=== PATIENT | male | born 1975 | race African-American/Black ===

== ENCOUNTER 2018-10-21 09:04 | Emergency (ER) | payer OTHER ==
[2018-10-21 09:12] VITALS: TEMP 97.6; BMI 25.4
--- NOTE | 2018-10-21 09:23 | PDOC ---
History of Present Illness - General Chief Complaint: Lightheaded Stated Complaint: LIGHTHEAD / DIABETIC Time Seen by Provider: 10/21/18 09:23 History Source: Patient Exam Limitations: No Limitations - History of Present Illness Initial Comments: 10/21/18 09:23 Mr Fregoso is a 42 yo M who presents to the ER with a complaint of headache Pt has a h/o DM for which he is supposed to be taking Levimir and Metformin He has been off his medications for the past 3 weeks because he ran out AND the moscoso of his medications increased by hundreds of dollars In light of this, he has been drinking 1 gallon of water daily Pt reports his headache is throbbing, frontal, 6/10, no radiation to the neck Headache was a gradual onset, began 4 days ago No head trauma No fevers or chills No recent travel No dizziness No nausea, vomiting, diarrhea PMH: DM PSH: denies Meds: Levemir 30 units daily, Metformin ALL: NKDA Social: denies alcohol, drug, cigarette use FH: non contributory ROS: GENERAL/CONSTITUTIONAL: No: fever, chills HEAD, EYES, EARS, NOSE AND THROAT: No: change in vision, ear pain, discharge, sore throat, throat swelling. CARDIOVASCULAR: No: chest pain, lightheadedness, palpitations, syncope RESPIRATORY: No: cough, shortness of breath, wheezing GASTROINTESTINAL: No: nausea, vomiting, diarrhea, abdominal pain GENITOURINARY: No: dysuria, hematuria MUSCULOSKELETAL: No: back pain, neck pain, SKIN: No: rash NEUROLOGIC: Yes: headache No:vertigo, paresthesias, weakness ENDOCRINE: No: unexplained weight gain or loss HEMATOLOGIC/LYMPHATIC: No: anemia, easy bleeding, swelling nodes. PE: GENERAL: The patient is in no acute distress. HEAD: Normal with no signs of trauma. EYES: PERRLA, EOMI, sclera anicteric, conjunctiva clear. ENT: Ears normal, nares patent, oropharynx clear without exudates. Moist mucous membranes. NECK: Normal range of motion, supple LUNGS: Breath sounds equal, clear to auscultation bilaterally. No wheezes, and no crackles. HEART:Regular rate and rhythm, normal S1 and S2 without murmur, rub or gallop. ABDOMEN: Soft, nontender, normoactive bowel sounds. No guarding, no rebound. EXTREMITIES: Normal range of motion NEUROLOGICAL: Cranial nerves II through XII grossly intact. Normal speech. No focal neurological deficits. MUSCULOSKELETAL: Back non-tender to palpation SKIN: Warm, Dry, normal turgor, no rashes or lesions noted. 10/21/18 10:03 10/21/18 10:03 Past History - Past Medical History Allergies/Adverse Reactions: Allergies Allergy/AdvReac Type Severity Reaction Status Date / Time No Known Allergies Allergy Verified 10/21/18 09:09 Home Medications: Ambulatory Orders Insulin Glargine,Hum.rec.anlog [Lantus Solostar PEN (NF)] 30 units SQ AM metFORMIN HCL [Metformin HCl] 500 mg PO BID 04/29/16 COPD: No Diabetes: Yes - Immunization History Immunization Up to Date: Yes - Suicide/Smoking/Psychosocial Hx Smoking History: Never smoked Hx Alcohol Use: No Drug/Substance Use Hx: No *Physical Exam - Vital Signs Last Vital Signs Temp Pulse Resp BP Pulse Ox 97.6 F 87 18 125/67 100 10/21/18 09:10 10/21/18 09:10 10/21/18 09:10 10/21/18 09:10 10/21/18 09:10 ED Treatment Course - LABORATORY CBC & Chemistry Diagram: 10/21/18 09:30 10/21/18 09:30 Medical Decision Making - Medical Decision Making 10/21/18 10:08 42 yo M presenting with a complaint of headache and medication non compliance TOMAS is not worrisome as symptoms are mild, have been present for the past 4 days , no neurologic deficits Will give Tylenol and reglan Pt blood glucose elevated >200 Pt requested we send HgA1C Will send CMP Will start IV hydration Will give Meformin Will confirm doses of medications 10/21/18 11:06 Laboratory Tests 10/21/18 10/21/18 09:30 09:30 WBC 6.4 Hgb 14.9 Hct 43.1 Plt Count 238 BUN 17 Creatinine 1.2 Random Glucose 258 H Pt demonstrates no DKA upon re assessment, TOMAS is improved When asked which pharmacy he prefers for me to send his medications, pt states he already got his medications on Friday (2 days ago) Will NOT send any additional medications Pt will be discharged to home I discussed the physical exam findings, ancillary test results and final diagnoses with the patient. I answered all of the patient's questions. The patient was satisfied with the care received and felt comfortable with the discharge plan and treatment plan. The patient will call their primary care physician within 24 hours to arrange follow-up and will return to the Emergency Department with any new, persistent or worsening symptoms. *DC/Admit/Observation/Transfer Diagnosis at time of Disposition: Poorly controlled diabetes mellitus - Discharge Dispostion Disposition: HOME Condition at time of disposition: Stable Decision to Admit order: No - Referrals - Patient Instructions Printed Discharge Instructions: DI for Diabetes Type 2, What to Eat if You Have Diabetes Additional Instructions: Mr Fregoso Thank you for coming in to the ER today Return to the emergency department immediately with ANY new, persistent or worsening symptoms. Continue any medications as previously prescribed by your physician. You should follow up with your primary doctor as soon as possible regarding today's emergency department visit. Please make sure your doctor reviews the results of your emergency evaluation. Thank you for coming to the [facility] today for your care. It was a pleasure to see you today. Please note that your evaluation is INCOMPLETE until you follow-up with your doctor. - Post Discharge Activity Forms/Work/School Notes: Back to Work
[2018-10-21] MEDS ORDERED: SODIUM CHLORIDE 1,000 ML IV STA (09:38)
[2018-10-21 09:56] LABS: BASO % 1.3 % (0-2.0); HEMATOCRIT 43.1 % (35.4-49); HEMOGLOBIN 14.9 GM/dL (11.7-16.9); LYMPH % 41.4 % (8-40); MCH 28.5 pg (25.7-33.7); MCHC 34.5 g/dl (32.0-35.9); MEAN CELL VOLUME 82.8 fl (80-96); MEAN PLT VOLUME 9.4 fl (7.5-11.1); NEUT % 47.3 % (42.8-82.8); PLATELET COUNT 238 K/MM3 (134-434); RBC 5.21 M/mm3 (4.00-5.60); RDW 13.4 % (11.9-15.9); WHITE BLOOD COUNT 6.4 K/mm3 (4.0-10.0)
[2018-10-21] MEDS ORDERED: ACETAMINOPHEN 1000 MG/100 ML VIAL (NON FORMULARY) IVPB ONE (10:03)
[2018-10-21] MEDS ORDERED: METOCLOPRAMIDE HCL INJECTION 10 MG/2 ML VIAL IVPUSH ONE (10:03)
[2018-10-21] MEDS ORDERED: ACETAMINOPHEN INJECTION 100 ML IVPB ONE (10:05)
[2018-10-21] MEDS ORDERED: METOCLOPRAMIDE HCL INJECTION 10 MG/2 ML VIAL ONE (10:05)
[2018-10-21 10:30] LABS: ALBUMIN 3.7 g/dl (3.4-5.0); ALK PHOS 71 U/L (45-117); ANION GAP 4 MMOL/L (8-16); BILIRUBIN,TOTAL 0.3 mg/dL (0.2-1); BLOOD UREA NITROGEN 17 mg/dL (7-18); CHLORIDE 103 mmol/L (98-107); CO2 29 mmol/L (21-32); CREATININE 1.2 mg/dL (0.55-1.3); GLUCOSE,RANDOM 258 mg/dL (74-106); POTASSIUM 4.2 mmol/L (3.5-5.1); SGOT/AST 17 U/L (15-37); SGPT/ALT 26 U/L (13-61); SODIUM 136 mmol/L (136-145); TOT PROT 6.9 g/dl (6.4-8.2)
[2018-10-21] MEDS ORDERED: metFORMIN HCL 500 MG TABLET (FP) PO ONE (10:57)
[2018-10-21] MEDS ORDERED: metFORMIN HCL 500 MG TABLET (FP) ONE (11:06)
[2018-10-21 11:10] VITALS: BP 121/74; PULSE 80
== END 2018-10-21 11:12 | disposition home or self-care (01) ==
LOC: JER 09:04
PROC: 3E033NZ Introduction of Analgesics, Hypnotics, Sedatives into Peripheral Vein, Percutaneous Approach (ICD-10-PCS; principal; 2018-10-21)
PROC: 3E033GC Introduction of Other Therapeutic Substance into Peripheral Vein, Percutaneous Approach (ICD-10-PCS; 2018-10-21)
PROC: 3E0337Z Introduction of Electrolytic and Water Balance Substance into Peripheral Vein, Percutaneous Approach (ICD-10-PCS; 2018-10-21)
DX: E11.8 Type 2 diabetes mellitus with unspecified complications (principal)
CPT/HCPCS: 36415; 80053; 82962; 83036; 85025; 99284-25; J0131; J7030

== ENCOUNTER 2020-08-29 17:24 | Emergency (ER) | payer OTHER ==
[2020-08-29 17:32] VITALS: BP 117/84; PULSE 92; TEMP 98.4; BMI 24.3
[2020-08-29 20:21] LABS: VENOUS BASE EXCESS 2.9 mmol/L (-2-2); VENOUS O2 SATURATION 30.4 % (70-80); VENOUS PCO2 59.8 mmHg (38-52); VENOUS PH 7.33 (7.310-7.410)
[2020-08-29 20:26] LABS: BASO % 0.6 % (0-2.0); EOS % 1.5 % (0-4.5); HEMATOCRIT 39.1 % (35.4-49); LYMPH % 50.7 % (8-40); MCH 29.4 pg (25.7-33.7); MCHC 35.8 g/dl (32.0-35.9); MEAN CELL VOLUME 82.1 fl (80-96); MEAN PLT VOLUME 9.1 fl (7.5-11.1); NEUT % 42.2 % (42.8-82.8); PLATELET COUNT 190 K/MM3 (134-434); RBC 4.77 M/mm3 (4.00-5.60); RDW 13.2 % (11.9-15.9); WHITE BLOOD COUNT 5.5 K/mm3 (4.0-10.0)
[2020-08-29 20:48] LABS: POTASSIUM 4.3 mmol/L (3.5-5.1)
[2020-08-29 20:50] LABS: BLOOD UREA NITROGEN 13.1 mg/dL (7-18); CALCIUM 9.4 mg/dL (8.5-10.1)
[2020-08-29 20:53] LABS: CREATININE 1.3 mg/dL (0.55-1.3)
[2020-08-29 20:55] LABS: BILIRUBIN,TOTAL 0.6 mg/dL (0.2-1); TOT PROT 7.6 g/dl (6.4-8.2)
[2020-08-29] MEDS ORDERED: INSULIN REGULAR HUMAN 100 UNITS/ML *VIAL SQ ONE (21:27)
[2020-08-29] MEDS ORDERED: LACTATED RINGERS SOLUTION 1000 ML INFUS.BAG IV ONE (21:34)
== END 2020-08-29 23:17 | disposition home or self-care (01) ==
LOC: JER 17:24
DX: R73.9 Hyperglycemia, unspecified (principal)
CPT/HCPCS: 36415; 80053; 82010; 82803; 82962; 85025; 99283-25

== ENCOUNTER 2021-08-21 13:43 | Emergency (ER) | payer SELFPAY ==
[2021-08-21 13:49] VITALS: BP 113/88; PULSE 98; TEMP 97.6; BMI 24.3
[2021-08-21] MEDS ORDERED: SODIUM CHLORIDE 0.9% 500 ML INFUS.BAG IV ONE ×2 (13:51→14:34)
[2021-08-21 14:25] LABS: BASO % 0.6 % (0-2.0); EOS % 0.8 % (0-4.5); HEMATOCRIT 42.9 % (35.4-49); HEMOGLOBIN 14.6 GM/dL (11.7-16.9); LYMPH % 37.7 % (8-40); MCH 28.6 pg (25.7-33.7); MCHC 34.1 g/dl (32.0-35.9); MEAN CELL VOLUME 83.8 fl (80-96); MEAN PLT VOLUME 9.2 fl (7.5-11.1); NEUT % 53.9 % (42.8-82.8); PLATELET COUNT 266 10^3/uL (134-434); RBC 5.12 M/mm3 (4.00-5.60); RDW 13.4 % (11.9-15.9); WHITE BLOOD COUNT 5.5 K/mm3 (4.0-10.0)
[2021-08-21 14:27] LABS: VENOUS BASE EXCESS 0.7 mmol/L (-2-2); VENOUS PCO2 57.6 mmHg (38-52); VENOUS PH 7.31 (7.310-7.410)
[2021-08-21 14:37] LABS: ACTIVATED PTT 31.3 SECONDS (25.2-36.5); INR 0.99 (0.83-1.09); PROTHROMBIN TIME (PATIENT) 11.4 SEC (9.7-13.0)
[2021-08-21 14:45] LABS: URINE APPEARANCE CLEAR; URINE BILIRUBIN NEGATIVE (NEGATIVE); URINE COLOR YELLOW; URINE GLUCOSE (UA) 3+ (NEGATIVE); URINE KETONE NEGATIVE (NEGATIVE); URINE LEUK ESTERASE NEGATIVE (NEGATIVE); URINE NITRITE NEGATIVE (NEGATIVE); URINE PROTEIN NEGATIVE (NEGATIVE); URINE UROBILINOGEN 0.2 mg/dL (0.2-1.0)
[2021-08-21 14:51] LABS: CHLORIDE 98 mmol/L (98-107); SODIUM 134 mmol/L (136-145)
[2021-08-21 14:53] LABS: ALBUMIN 4.2 g/dl (3.4-5.0); CALCIUM 9.9 mg/dL (8.5-10.1)
[2021-08-21 14:54] LABS: ANION GAP 6 MMOL/L (8-16); BLOOD UREA NITROGEN 13.3 mg/dL (7-18); CO2 31 mmol/L (21-32); MAGNESIUM 2.2 mg/dL (1.8-2.4)
[2021-08-21 14:56] LABS: SGPT/ALT 36 U/L (13-61)
[2021-08-21 14:57] LABS: CREATININE 1.4 mg/dL (0.55-1.3); SGOT/AST 14 U/L (15-37)
[2021-08-21 14:58] LABS: BILIRUBIN,TOTAL 0.6 mg/dL (0.2-1); TOT PROT 7.7 g/dl (6.4-8.2)
[2021-08-21 14:59] LABS: ALK PHOS 87 U/L (45-117)
[2021-08-21 15:24] LABS: GLUCOSE,RANDOM 555 mg/dL (74-106)
[2021-08-21] MEDS ORDERED: INSULIN (LEVEMIR) 100 UNITS/ML UNITS SQ ONE (15:35)
[2021-08-21 15:36] LABS: LIPASE 66 U/L (73-393)
[2021-08-21] MEDS ORDERED: POTASSIUM CHLORIDE TABS 20 MEQ TABLET.ER (FP) PO ONE ×2 (15:57→16:14)
[2021-08-21] MEDS ORDERED: KCL 10 MEQ IVPB 10 MEQ/100 ML INFUS.BAG IVPB SCH (16:00)
[2021-08-21] MEDS ORDERED: KCL 10 MEQ IVPB 10 MEQ/100 ML INFUS.BAG IVPB ONE (16:14)
== END 2021-08-21 17:06 | disposition home or self-care (01) ==
LOC: JER 13:43
PROC: 3E033GC Introduction of Other Therapeutic Substance into Peripheral Vein, Percutaneous Approach (ICD-10-PCS; principal; 2021-08-21)
DX: R73.9 Hyperglycemia, unspecified (principal)
CPT/HCPCS: 36415; 71045-TC-FY; 80053; 81003; 82010; 82803; 82962; 83690; 83735; 84484; 85025; 85610; 85730; 87086; 93005; 93010; 99285-25

== ENCOUNTER 2021-10-09 17:39 | Emergency (ER) | payer OTHER ==
[2021-10-09 18:06] VITALS: BP 109/71; PULSE 100; TEMP 97.8; BMI 27.3
[2021-10-09] MEDS ORDERED: SODIUM CHLORIDE 1,000 ML IV STA (20:24)
[2021-10-09 21:23] LABS: BASO % 0.5 % (0-2.0); EOS % 1.1 % (0-4.5); HEMATOCRIT 43.8 % (35.4-49); LYMPH % 37.4 % (8-40); MCH 28.7 pg (25.7-33.7); MCHC 34.2 g/dl (32.0-35.9); MEAN PLT VOLUME 9.1 fl (7.5-11.1); MONO % 5.6 % (3.8-10.2); NEUT % 55.4 % (42.8-82.8); PLATELET COUNT 215 10^3/uL (134-434); RBC 5.21 M/mm3 (4.00-5.60); RDW 13.6 % (11.9-15.9); WHITE BLOOD COUNT 6.8 K/mm3 (4.0-10.0)
[2021-10-09 21:45] LABS: CHLORIDE 100 mmol/L (98-107); SODIUM 136 mmol/L (136-145)
[2021-10-09 21:49] LABS: ALBUMIN 3.7 g/dl (3.4-5.0); ANION GAP 3 MMOL/L (8-16); BLOOD UREA NITROGEN 14.2 mg/dL (7-18); CALCIUM 9.4 mg/dL (8.5-10.1); CO2 32 mmol/L (21-32); LIPASE 72 U/L (73-393)
[2021-10-09 21:52] LABS: CREATININE 1.5 mg/dL (0.55-1.3); SGOT/AST 18 U/L (15-37); SGPT/ALT 30 U/L (13-61)
[2021-10-09 21:53] LABS: TOT PROT 7.4 g/dl (6.4-8.2)
[2021-10-09 21:54] LABS: BILIRUBIN,TOTAL 0.3 mg/dL (0.2-1)
[2021-10-09 21:55] LABS: ALK PHOS 90 U/L (45-117)
[2021-10-09 22:04] LABS: PH,URINE 6.5 (5.0-8.0); URINE APPEARANCE CLEAR; URINE BILIRUBIN NEGATIVE (NEGATIVE); URINE COLOR YELLOW; URINE GLUCOSE (UA) 3+ (NEGATIVE); URINE KETONE NEGATIVE (NEGATIVE); URINE LEUK ESTERASE NEGATIVE (NEGATIVE); URINE NITRITE NEGATIVE (NEGATIVE); URINE PROTEIN NEGATIVE (NEGATIVE); URINE UROBILINOGEN 0.2 mg/dL (0.2-1.0)
[2021-10-09 22:12] LABS: GLUCOSE,RANDOM 564 mg/dL (74-106)
[2021-10-09] MEDS ORDERED: INSULIN REGULAR HUMAN 100 UNITS/ML *VIAL IVPUSH ONE (22:16)
== END 2021-10-09 23:31 | disposition home or self-care (01) ==
LOC: JER 17:39
PROC: 3E013VG Introduction of Insulin into Subcutaneous Tissue, Percutaneous Approach (ICD-10-PCS; principal; 2021-10-09)
PROC: 3E0337Z Introduction of Electrolytic and Water Balance Substance into Peripheral Vein, Percutaneous Approach (ICD-10-PCS; 2021-10-09)
DX: R73.9 Hyperglycemia, unspecified (principal)
CPT/HCPCS: 36415; 80053; 81003; 82010; 82962; 83690; 85025; 87086; 87804; 99284-25

== ENCOUNTER 2022-01-28 11:17 | Emergency (ER) | payer OTHER ==
[2022-01-28 11:50] VITALS: RESP 18; TEMP 97.5; BMI 22.8
[2022-01-28] MEDS ORDERED: SODIUM CHLORIDE 0.9% 500 ML INFUS.BAG IV ONE ×2 (12:30→14:27)
[2022-01-28 13:15] LABS: VENOUS BASE EXCESS 2.4 mmol/L (-2-2); VENOUS O2 SATURATION 50.3 % (70-80); VENOUS PCO2 56.2 mmHg (38-52); VENOUS PH 7.34 (7.310-7.410)
[2022-01-28 13:25] LABS: BASO % 0.4 % (0-2.0); EOS % 0.9 % (0-4.5); HEMATOCRIT 40.8 % (35.4-49); HEMOGLOBIN 14.1 GM/dL (11.7-16.9); LYMPH % 28.9 % (8-40); MCHC 34.6 g/dl (32.0-35.9); MEAN CELL VOLUME 80.8 fl (80-96); MONO % 5.9 % (3.8-10.2); NEUT % 63.9 % (42.8-82.8); PLATELET COUNT 303 10^3/uL (134-434); RBC 5.04 M/mm3 (4.00-5.60); RDW 13.5 % (11.9-15.9); WHITE BLOOD COUNT 6.1 K/mm3 (4.0-10.0)
[2022-01-28 13:46] LABS: CHLORIDE 98 mmol/L (98-107); SODIUM 136 mmol/L (136-145)
[2022-01-28 13:47] LABS: CALCIUM 9.5 mg/dL (8.5-10.1)
[2022-01-28 13:48] LABS: ALBUMIN 3.7 g/dl (3.4-5.0); ANION GAP 7 MMOL/L (8-16); BLOOD UREA NITROGEN 13.7 mg/dL (7-18); CO2 30 mmol/L (21-32)
[2022-01-28 13:50] LABS: CREATININE 1.3 mg/dL (0.55-1.3); SGOT/AST 16 U/L (15-37); SGPT/ALT 41 U/L (13-61)
[2022-01-28 13:53] LABS: BILIRUBIN,TOTAL 0.5 mg/dL (0.2-1); TOT PROT 7.2 g/dl (6.4-8.2)
[2022-01-28 13:54] LABS: ALK PHOS 93 U/L (45-117)
[2022-01-28 13:59] LABS: GLUCOSE,RANDOM 533 mg/dL (74-106)
[2022-01-28] MEDS ORDERED: INSULIN REGULAR HUMAN 100 UNITS/ML *VIAL SQ ONE (14:27)
[2022-01-28 14:53] LABS: URINE APPEARANCE CLEAR; URINE BILIRUBIN NEGATIVE (NEGATIVE); URINE COLOR YELLOW; URINE GLUCOSE (UA) 4+ (NEGATIVE); URINE KETONE NEGATIVE (NEGATIVE)
[2022-01-28 14:54] LABS: EPI CELLS 10.5 /uL (0-25.1); HYALINE CASTS 0.12 /uL (0-3.1); URINE BACTERIA 280.7 /uL (0-1359); URINE LEUK ESTERASE NEGATIVE (NEGATIVE); URINE NITRITE NEGATIVE (NEGATIVE); URINE PROTEIN TRACE (NEGATIVE); URINE RBC 4.6 /uL (0-23.9); URINE UROBILINOGEN 0.2 mg/dL (0.2-1.0); URINE WBC 14.9 /uL (0-25.8)
[2022-01-28 15:29] LABS: YEAST PRESENT (NEGATIVE)
[2022-01-28 16:54] VITALS: BP 108/71; PULSE 82
== END 2022-01-28 16:55 | disposition home or self-care (01) ==
LOC: JER 11:17
DX: E11.65 Type 2 diabetes mellitus with hyperglycemia (principal)
CPT/HCPCS: 36415; 71045-TC-FY; 80053; 81003; 82010; 82803; 82962; 84484; 85025; 87086; 93005; 93010; 99285-25

== ENCOUNTER 2022-03-12 16:32 | Emergency (ER) | payer OTHER ==
[2022-03-12 16:50] VITALS: BP 101/70; PULSE 104; RESP 18; TEMP 98; BMI 260.0
[2022-03-12] MEDS ORDERED: IBUPROFEN 600 MG TABLET (FP) PO ONE (16:59)
== END 2022-03-12 17:41 | disposition home or self-care (01) ==
LOC: JERFT 16:32
DX: S20.211A Contusion of right front wall of thorax, initial encounter (principal); W22.8XXA Striking against or struck by other objects, initial encounter
CPT/HCPCS: 71101-TC-RT-FY; 99283-25

== ENCOUNTER 2022-09-24 12:30 | Emergency (ER) | payer OTHER ==
[2022-09-24 12:45] VITALS: BMI 22.0
[2022-09-24] MEDS ORDERED: SODIUM CHLORIDE 1,000 ML IV STA ×2 (14:03→17:43)
[2022-09-24 15:07] LABS: BASO % 0.6 % (0-2.0); EOS % 2.3 % (0-4.5); HEMATOCRIT 40.2 % (35.4-49); LYMPH % 29.8 % (8-40); MCH 28.1 pg (25.7-33.7); MCHC 34.8 g/dl (32.0-35.9); MEAN CELL VOLUME 80.9 fl (80-96); MEAN PLT VOLUME 9.6 fl (7.5-11.1); MONO % 6.8 % (3.8-10.2); NEUT % 60.5 % (42.8-82.8); PLATELET COUNT 260 10^3/uL (134-434); RBC 4.97 M/mm3 (4.00-5.60); RDW 13.2 % (11.9-15.9); WHITE BLOOD COUNT 5.7 K/mm3 (4.0-10.0)
[2022-09-24 15:12] LABS: INR 0.96 (0.83-1.09); PROTHROMBIN TIME (PATIENT) 11.1 SEC (9.7-13.0)
[2022-09-24 15:14] LABS: ACTIVATED PTT 27.6 SECONDS (25.2-36.5)
[2022-09-24 15:23] LABS: CHLORIDE 96 mmol/L (98-107); SODIUM 135 mmol/L (136-145)
[2022-09-24 15:25] LABS: VENOUS BASE EXCESS -10.6 mmol/L (-2-2); VENOUS O2 SATURATION 53.8 % (70-80); VENOUS PCO2 26.5 mmHg (38-52); VENOUS PH 7.341 (7.310-7.410)
[2022-09-24 15:26] LABS: ALBUMIN 3.5 g/dl (3.4-5.0); ANION GAP 5 MMOL/L (8-16); BLOOD UREA NITROGEN 17.9 mg/dL (7-18); CO2 33 mmol/L (21-32); MAGNESIUM 2.1 mg/dL (1.8-2.4)
[2022-09-24 15:28] LABS: SGPT/ALT 21 U/L (13-61)
[2022-09-24 15:29] LABS: CREATININE 1.6 mg/dL (0.55-1.3); SGOT/AST 10 U/L (15-37)
[2022-09-24 15:30] LABS: BILIRUBIN,TOTAL 0.5 mg/dL (0.2-1); TOT PROT 6.9 g/dl (6.4-8.2)
[2022-09-24 15:31] LABS: URINE APPEARANCE CLEAR; URINE BILIRUBIN NEGATIVE (NEGATIVE); URINE COLOR YELLOW; URINE GLUCOSE (UA) >1000 (NEGATIVE); URINE KETONE TRACE (NEGATIVE); URINE PROTEIN TRACE (NEGATIVE)
[2022-09-24 15:31] LABS: ALK PHOS 82 U/L (45-117)
[2022-09-24 15:32] LABS: URINE LEUK ESTERASE TRACE (NEGATIVE); URINE NITRITE NEGATIVE (NEGATIVE); URINE UROBILINOGEN 0.2 mg/dL (0.2-1.0)
[2022-09-24 15:34] LABS: GLUCOSE,RANDOM 614 mg/dL (74-106)
[2022-09-24] MEDS ORDERED: INSULIN REGULAR HUMAN 100 UNITS/ML *VIAL IVPUSH ONE (17:06)
[2022-09-24 20:28] VITALS: BP 115/77; PULSE 89; RESP 18; TEMP 97
== END 2022-09-24 21:00 | disposition home or self-care (01) ==
LOC: JER 12:30
PROC: 3E013VG Introduction of Insulin into Subcutaneous Tissue, Percutaneous Approach (ICD-10-PCS; principal; 2022-09-24)
PROC: 3E0337Z Introduction of Electrolytic and Water Balance Substance into Peripheral Vein, Percutaneous Approach (ICD-10-PCS; 2022-09-24)
PROC: 3E0337Z Introduction of Electrolytic and Water Balance Substance into Peripheral Vein, Percutaneous Approach (ICD-10-PCS; 2022-09-24)
DX: E11.65 Type 2 diabetes mellitus with hyperglycemia (principal); R51.9 Headache, unspecified; R20.2 Paresthesia of skin; R35.0 Frequency of micturition; R11.10 Vomiting, unspecified; R19.7 Diarrhea, unspecified; Z20.822 Contact with and (suspected) exposure to COVID-19
CPT/HCPCS: 0241U-QW; 36415; 80053; 81003; 82010; 82803; 82962; 83735; 85025; 85610; 85730; 87086; 93005; 93010; 96361; 96374; 99284-25

== ENCOUNTER 2023-01-13 19:10 | Inpatient (IN) | payer SELFPAY ==
[2023-01-13] MEDS ORDERED: SODIUM CHLORIDE 0.9% 500 ML INFUS.BAG IV ONE (21:32)
[2023-01-13] MEDS ORDERED: SODIUM CHLORIDE 0.9% 1000 ML INFUS.BAG IV ONE (21:49)
[2023-01-13 22:41] LABS: VENOUS BASE EXCESS 1.6 mmol/L (-2-2); VENOUS PH 7.325 (7.310-7.410)
[2023-01-13 22:47] LABS: BASO % 0.4 % (0-2.0); EOS % 1.6 % (0-4.5); HEMATOCRIT 41.3 % (35.4-49); HEMOGLOBIN 14.2 GM/dL (11.7-16.9); LYMPH % 36.7 % (8-40); MCH 28.2 pg (25.7-33.7); MCHC 34.3 g/dl (32.0-35.9); MEAN CELL VOLUME 82.2 fl (80-96); MEAN PLT VOLUME 9.2 fl (7.5-11.1); MONO % 7.5 % (3.8-10.2); NEUT % 53.8 % (42.8-82.8); PLATELET COUNT 234 10^3/uL (134-434); RBC 5.03 M/mm3 (4.00-5.60); RDW 13.3 % (11.9-15.9); WHITE BLOOD COUNT 6.1 K/mm3 (4.0-10.0)
[2023-01-13 23:09] LABS: ALBUMIN 3.7 g/dl (3.4-5.0)
[2023-01-13 23:10] LABS: ANION GAP 9 MMOL/L (8-16); BLOOD UREA NITROGEN 15.7 mg/dL (7-18); CHLORIDE 97 mmol/L (98-107); CO2 30 mmol/L (21-32); POTASSIUM 4.9 mmol/L (3.5-5.1); SODIUM 136 mmol/L (136-145)
[2023-01-13 23:13] LABS: CREATININE 1.6 mg/dL (0.55-1.3); SGOT/AST 10 U/L (15-37); SGPT/ALT 24 U/L (13-61)
[2023-01-13 23:15] LABS: BILIRUBIN,TOTAL 0.4 mg/dL (0.2-1); CALCIUM 9.6 mg/dL (8.5-10.1); TOT PROT 7.2 g/dl (6.4-8.2)
[2023-01-13 23:16] LABS: ALK PHOS 92 U/L (45-117)
[2023-01-14 00:07] LABS: GLUCOSE,RANDOM 713 mg/dL (74-106)
[2023-01-14] MEDS ORDERED: INSULIN REGULAR HUMAN 100 UNITS/ML *VIAL SQ ONE (00:26)
[2023-01-14] MEDS ORDERED: SODIUM CHLORIDE 0.9% 500 ML INFUS.BAG IV ONE (00:33)
[2023-01-14] MEDS ORDERED: INSULIN REGULAR HUMAN 100 UNITS/ML *VIAL ONE (00:36)
[2023-01-14 00:47] LABS: URINE APPEARANCE CLEAR; URINE BILIRUBIN NEGATIVE (NEGATIVE); URINE COLOR YELLOW; URINE GLUCOSE (UA) 3+ (NEGATIVE); URINE KETONE NEGATIVE (NEGATIVE); URINE LEUK ESTERASE NEGATIVE (NEGATIVE); URINE NITRITE NEGATIVE (NEGATIVE); URINE PROTEIN NEGATIVE (NEGATIVE); URINE UROBILINOGEN 0.2 mg/dL (0.2-1.0)
[2023-01-14] MEDS ORDERED: INSULIN (NOVOLOG) ASPART 100 UNITS/ML 10ML VIAL SQ ONE (01:21)
[2023-01-14] MEDS ORDERED: SODIUM CHLORIDE 1,000 ML IV SCH (03:15)
[2023-01-14] MEDS ORDERED: HEPARIN NA (PORCINE) 5,000 UNITS/ML 1ML VIAL ONE (05:40)
[2023-01-14] MEDS ORDERED: HEPARIN NA (PORCINE) 5,000 UNITS/ML 1ML VIAL SQ SCH (06:00)
[2023-01-14 06:29] LABS: HEMATOCRIT 38.3 % (35.4-49); HEMOGLOBIN 12.8 GM/dL (11.7-16.9); MCH 27.6 pg (25.7-33.7); MCHC 33.6 g/dl (32.0-35.9); MEAN CELL VOLUME 82.3 fl (80-96); MEAN PLT VOLUME 9.2 fl (7.5-11.1); PLATELET COUNT 222 10^3/uL (134-434); RBC 4.65 M/mm3 (4.00-5.60); RDW 13.1 % (11.9-15.9); WHITE BLOOD COUNT 6.2 K/mm3 (4.0-10.0)
[2023-01-14 06:44] LABS: POTASSIUM 3.6 mmol/L (3.5-5.1)
[2023-01-14 06:46] LABS: CALCIUM 8.4 mg/dL (8.5-10.1)
[2023-01-14 06:47] LABS: ALBUMIN 3.1 g/dl (3.4-5.0); BLOOD UREA NITROGEN 11.8 mg/dL (7-18)
[2023-01-14 06:50] LABS: CREATININE 1.2 mg/dL (0.55-1.3)
[2023-01-14 06:51] LABS: BILIRUBIN,TOTAL 0.2 mg/dL (0.2-1); TOT PROT 6.2 g/dl (6.4-8.2)
[2023-01-14] MEDS ORDERED: INSULIN (LEVEMIR) 100 UNITS/ML UNITS SQ SCH (07:00)
[2023-01-14] MEDS: INSULIN SLIDING SCALE (NOVOLOG) 1 VIAL SQ SCH ×2 (09:12→11:45)
[2023-01-14 09:14] VITALS: PULSE 81
[2023-01-14 10:21] VITALS: BP 127/86; TEMP 97.7
[2023-01-14] MEDS ORDERED: COLLAGENASE CLOSTRIDIUM HIST. 30 GRAMS TUBE TP SCH (10:30)
[2023-01-14 11:31] VITALS: RESP 20; BMI 22.3
== END 2023-01-14 13:30 | disposition home or self-care (01) | DRG 420 ==
LOC: JER 19:10 → JERBED 01-14 06:38 → J5S 01-14 10:11
PROVIDERS: ADMIT Internal Medicine; ATTEND Internal Medicine
DX: E11.00 Type 2 diabetes mellitus with hyperosmolarity without nonketotic hyperglycemic-hyperosmolar coma (NKHHC) (principal); E11.621 Type 2 diabetes mellitus with foot ulcer; L97.508 Non-pressure chronic ulcer of other part of unspecified foot with other specified severity; Z91.141 Patient's other noncompliance with medication regimen due to financial hardship
CPT/HCPCS: 36415; 80053; 81003; 82010; 82803; 82962; 83036; 83605; 85025; 85027; 93005; 93010; 99285-25; J1644